=== PATIENT | female | born 1965 | race Caucasian/White ===

== ENCOUNTER 2024-01-26 08:19 | Inpatient (IN) | payer BC ==
[2024-01-26] VITALS (16 sets, daily range): BP systolic 103–136; BP diastolic 45–72; PULSE 52–98; RESP 16–24; TEMP 98.1; O2SAT 93–98
[~2024-01-26] VITALS: Ht 182.9 cm; Wt 113.0 kg
[2024-01-26] MEDS: normal saline 1000ml 1,000 ML IV ONE (09:18)
[2024-01-26] MEDS: HYDROmorphone 1 mg/ml syringe IV ONE ×2 (09:20→11:25)
[2024-01-26] MEDS: ondansetron/PF 4mg/2ml inj IV ONE (09:21)
[2024-01-26 09:31] LABS: BASOPHILS % (AUTO) 0.4 % (0-1); EOSINOPHILS % (AUTO) 0.2 % (0-6); HEMATOCRIT 40.5 % (35.0-45.0); HEMOGLOBIN 13.7 g/dl (12.0-16.0); LYMPHOCYTES # (AUTO) 3.4 X10'3 (1.1-4.8); LYMPHOCYTES % (AUTO) 26.2 % (21-51); MEAN CORPUSCULAR HEMOGLOBIN 29.4 PG (27.0-31.0); MEAN CORPUSCULAR HGB CONC 33.7 g/dL (33.0-36.5); MEAN CORPUSCULAR VOLUME 87.2 FL (78-98); MEAN PLATELET VOLUME 7.3 FL (7.4-10.4); MONOCYTES # (AUTO) 0.8 X10'3 (0-0.9); NEUTROPHILS # (AUTO) 8.8 X10'3 (1.8-7.7); NEUTROPHILS % (AUTO) 67.2 % (42-75); PLATELET COUNT 277 X10'3 (140-440); RED BLOOD COUNT 4.64 X10'6 (4.20-5.60); RED CELL DISTRIBUTION WIDTH 13.5 % (11.5-14.5); WHITE BLOOD COUNT 13.1 X10'3 (4.5-11.0)
[2024-01-26 09:59] LABS: ALANINE AMINOTRANSFERASE 20 U/L (12-78); ALBUMIN 3.7 G/DL (3.4-5.0); ALBUMIN/GLOBULIN RATIO 0.9 (1.1-1.5); ALKALINE PHOSPHATASE 89 IU/L (46-116); ANION GAP 10 (8-16); ASPARTATE AMINO TRANSFERASE 12 U/L (10-37); BLOOD UREA NITROGEN 17 MG/DL (7-18); BUN/CREATININE RATIO 21.5 (10.0-20.0); CALCIUM 9.1 MG/DL (8.5-10.1); CHLORIDE 101 MMOL/L (99-107); CREATININE 0.79 MG/DL (0.40-0.90); GLUCOSE 128 MG/DL (70-104); LIPASE 21 U/L (16-77); SODIUM 137 MMOL/L (135-145); TOTAL CARBON DIOXIDE 26.2 MMOL/L (24-32); TOTAL PROTEIN 7.6 G/DL (6.4-8.2); eCRCL 73 ML/MIN; eGFR 75 ML/MIN
[2024-01-26] MEDS ORDERED: iohexol 300mg/ml 100ml inj. ONE (10:03)
[2024-01-26] MEDS ORDERED: NO HOME MEDS (11:04)
[2024-01-26] MEDS: acetaminophen 1,000mg/100ml IV 100 ML IV ONE (11:21)
[2024-01-26] MEDS: piperacillin/tazo 3.375gm/50ml 50 ML IV ONE (11:42)
[2024-01-26] MEDS ORDERED: sevoflurane 250ml liquid IH ONE (11:45)
[2024-01-26] MEDS ORDERED: potassium Cl 20 mEq SR tablet PO PRN ×2 (13:25)
[2024-01-26] MEDS ORDERED: magnesium Cl slow-release 64mg tablet PO PRN (13:25)
[2024-01-26] MEDS ORDERED: mag hydrox/Alum hydrox/simeth 30ml oral suspension PO PRN (13:25)
[2024-01-26] MEDS ORDERED: docusate sod 100mg capsule PO PRN (13:25)
[2024-01-26] MEDS ORDERED: metoclopramide 5 mg/ml inj IV PRN (13:25)
[2024-01-26] MEDS ORDERED: magnesium sulf-water 4G/100mL 100 ML IV PRN (13:25)
[2024-01-26] MEDS ORDERED: potassium Cl 40MEQ/1/2NS 520ml 520 ML IV PRN (13:25)
[2024-01-26] MEDS ORDERED: acetaminophen 325mg tablet PO PRN (13:25)
[2024-01-26] MEDS ORDERED: ondansetron/PF 4mg/2ml inj IV PRN ×2 (13:25→14:45)
[2024-01-26] MEDS ORDERED: magnesium sulf-water 2g/50mL 50 ML IV PRN (13:25)
[2024-01-26 13:37] LABS: MAGNESIUM 1.9 MG/DL (1.5-2.4)
[2024-01-26 13:40] LABS: APTT 26 SECONDS (22-32); PROTHROMBIN TIME 10.7 SECONDS (9.0-12.0)
[2024-01-26] MEDS ORDERED: BUPIVAcaine 2.5mg/ml inj 50ml vial (contains preservative) ONE (14:06)
[2024-01-26] MEDS: ringers solution, lacted 1,000 ML IV SCH ×2 (14:32→14:45)
[2024-01-26] MEDS: BUPIVAcaine/PF 2.5 mg/ml (0.25%) 30ml vial IJ ONE (14:41)
[2024-01-26] MEDS ORDERED: midazolam 1 mg/ML 2ml injection ONE (14:43)
[2024-01-26] MEDS ORDERED: rocuronium 10mg/ml inj IV ONE (14:43)
[2024-01-26] MEDS ORDERED: fentaNYL/PF 50MCG/1 ML 2ML syringe ONE (14:43)
[2024-01-26] MEDS ORDERED: propofol inj 20 ML IV ONE (14:43)
[2024-01-26] MEDS ORDERED: labetalol 20mg/4ml (5mg/ml) syringe IV PRN (14:45)
[2024-01-26] MEDS ORDERED: meperidine/PF 25mg/ml syringe IV PRN ×3 (14:45)
[2024-01-26] MEDS ORDERED: proCHLORperazine 10 MG/2 ml inj IV PRN (14:45)
[2024-01-26] MEDS ORDERED: morphine 4 MG/ML inj SYRINge IV PRN (14:45)
[2024-01-26] MEDS ORDERED: morphine 2 MG/ML inj. syringe IV PRN (14:45)
[2024-01-26] MEDS ORDERED: ceFOXitin 1000 MG inj ONE ×2 (15:14)
[2024-01-26] MEDS: piperacillin/tazo 3.375gm/50ml 50 ML IV SCH (16:00)
[2024-01-26 16:41] LABS: HEMOGLOBIN A1C 5.8 % (4.5-6.2)
[2024-01-26] MEDS ORDERED: dexamethasone sod phosphate 4mg/ml inj. ONE (16:47)
[2024-01-26] MEDS ORDERED: ondansetron/PF 4mg/2ml inj ONE (16:48)
[2024-01-26] MEDS ORDERED: neostigmine methylsulfate 1 MG/ML 10ml vial ONE (16:48)
[2024-01-26] MEDS ORDERED: glycopyrrolate 0.2mg/ml inj ONE (16:48)
[2024-01-26] MEDS: HYDROmorphone/PF 0.2 MG/ML SYRINGE IV PRN (17:57)
[2024-01-26] MEDS ORDERED: naloxone 0.4 mg/ml inj IV PRN (18:25)
[2024-01-26] MEDS: K and/or MAG REPLACEMENT MC SCH (20:00)
[2024-01-26] MEDS: HYDROcodone/acetaminophen 5mg/325mg tablet PO PRN (21:07)
[2024-01-26] MEDS: HYDROmorphone inj. 0.5 MG/0.5 ML DISP.SYRIN IV PRN (22:43)
[2024-01-27 06:00] VITALS: BP 117/61; PULSE 52; PULSE 58; RESP 14; TEMP 97.8; O2SAT 97
[2024-01-27 07:02] LABS: BASOPHILS % (AUTO) 0 % (0-1); EOSINOPHILS % (AUTO) 0 % (0-6); HEMATOCRIT 34.4 % (35.0-45.0); HEMOGLOBIN 11.6 g/dl (12.0-16.0); LYMPHOCYTES # (AUTO) 1.8 X10'3 (1.1-4.8); LYMPHOCYTES % (AUTO) 12.4 % (21-51); MEAN CORPUSCULAR HEMOGLOBIN 29.4 PG (27.0-31.0); MEAN CORPUSCULAR HGB CONC 33.6 g/dL (33.0-36.5); MEAN CORPUSCULAR VOLUME 87.4 FL (78-98); MONOCYTES # (AUTO) 0.7 X10'3 (0-0.9); MONOCYTES % (AUTO) 5.2 % (2-12); NEUTROPHILS # (AUTO) 11.8 X10'3 (1.8-7.7); NEUTROPHILS % (AUTO) 82.4 % (42-75); PLATELET COUNT 232 X10'3 (140-440); RED BLOOD COUNT 3.93 X10'6 (4.20-5.60); RED CELL DISTRIBUTION WIDTH 13.1 % (11.5-14.5); WHITE BLOOD COUNT 14.4 X10'3 (4.5-11.0)
[2024-01-27 07:34] LABS: ALANINE AMINOTRANSFERASE 13 U/L (12-78); ALBUMIN 2.7 G/DL (3.4-5.0); ALBUMIN/GLOBULIN RATIO 0.7 (1.1-1.5); ALKALINE PHOSPHATASE 69 IU/L (46-116); ANION GAP 7 (8-16); ASPARTATE AMINO TRANSFERASE 10 U/L (10-37); BILIRUBIN,TOTAL 0.7 MG/DL (0.1-1.0); BLOOD UREA NITROGEN 12 MG/DL (7-18); CALCIUM 8.1 MG/DL (8.5-10.1); CHLORIDE 102 MMOL/L (99-107); CHOL/HDL RATIO 2.2 (0.00-4.99); CHOLESTEROL 125 MG/DL (0-200); GLUCOSE 143 MG/DL (70-104); HDL CHOLESTEROL 56 MG/DL (35-60); LDL CHOLESTEROL 60 MG/DL (50-100); MAGNESIUM 1.9 MG/DL (1.5-2.4); SODIUM 138 MMOL/L (135-145); TOTAL CARBON DIOXIDE 28.7 MMOL/L (24-32); TOTAL PROTEIN 6.6 G/DL (6.4-8.2); TRIGLYCERIDES 61 MG/DL (20-135); eCRCL 88 ML/MIN; eGFR 74 ML/MIN
[2024-01-27 08:36] VITALS: RESP 17; O2SAT 95
[2024-01-27 10:00] VITALS: BP 134/61; PULSE 63; RESP 20; TEMP 97.2; O2SAT 96
[2024-01-27] MEDS: magnesium hydroxide 30ml (MOM) UD suspension PO PRN (16:13)
[2024-01-27 18:40] VITALS: BP_SYST 121; BP_SYST 126; BP_DIAS 62; BP_DIAS 65; PULSE 66; PULSE 78; RESP 18; TEMP 97.9; TEMP 98.5; O2SAT 92; O2SAT 99
[2024-01-27 22:00] VITALS: BP 126/62; PULSE 78; RESP 18; TEMP 98.5; O2SAT 92
[2024-01-28] MEDS: ondansetron/PF 4mg/2ml inj IV PRN (02:11)
[2024-01-28] MEDS: pantoprazole 40 MG vial IV SCH (06:06)
[2024-01-28] MEDS: proCHLORperazine 10 MG/2 ml inj IV ONE (06:06)
[2024-01-28 06:53] LABS: BASOPHILS % (AUTO) 0.1 % (0-1); EOSINOPHILS # (AUTO) 0.1 X10'3 (0-0.9); EOSINOPHILS % (AUTO) 1.1 % (0-6); HEMATOCRIT 36.3 % (35.0-45.0); HEMOGLOBIN 12.3 g/dl (12.0-16.0); LYMPHOCYTES # (AUTO) 2.3 X10'3 (1.1-4.8); LYMPHOCYTES % (AUTO) 20.5 % (21-51); MEAN CORPUSCULAR HEMOGLOBIN 29.7 PG (27.0-31.0); MEAN CORPUSCULAR VOLUME 87.3 FL (78-98); MEAN PLATELET VOLUME 7.2 FL (7.4-10.4); MONOCYTES # (AUTO) 0.7 X10'3 (0-0.9); MONOCYTES % (AUTO) 6.3 % (2-12); NEUTROPHILS # (AUTO) 8.2 X10'3 (1.8-7.7); PLATELET COUNT 268 X10'3 (140-440); RED BLOOD COUNT 4.16 X10'6 (4.20-5.60); RED CELL DISTRIBUTION WIDTH 13.5 % (11.5-14.5); WHITE BLOOD COUNT 11.4 X10'3 (4.5-11.0)
[2024-01-28 07:00] VITALS: BP 120/70; PULSE 77; RESP 16; TEMP 97.2; O2SAT 95
[2024-01-28 07:25] LABS: ALANINE AMINOTRANSFERASE 19 U/L (12-78); ALBUMIN 2.9 G/DL (3.4-5.0); ALBUMIN/GLOBULIN RATIO 0.8 (1.1-1.5); ALKALINE PHOSPHATASE 73 IU/L (46-116); ANION GAP 6 (8-16); ASPARTATE AMINO TRANSFERASE 17 U/L (10-37); BILIRUBIN,TOTAL 0.8 MG/DL (0.1-1.0); BLOOD UREA NITROGEN 16 MG/DL (7-18); BUN/CREATININE RATIO 18.6 (10.0-20.0); CALCIUM 8.4 MG/DL (8.5-10.1); CHLORIDE 101 MMOL/L (99-107); CREATININE 0.86 MG/DL (0.40-0.90); GLUCOSE 119 MG/DL (70-104); MAGNESIUM 2.1 MG/DL (1.5-2.4); POTASSIUM 3.7 MMOL/L (3.5-5.1); SODIUM 138 MMOL/L (135-145); TOTAL CARBON DIOXIDE 30.9 MMOL/L (24-32); TOTAL PROTEIN 6.7 G/DL (6.4-8.2); eCRCL 82 ML/MIN; eGFR 68 ML/MIN
[2024-01-28] MEDS ORDERED: metoclopramide 5 mg/ml inj IV PRN (08:35)
[2024-01-28] MEDS: metoclopramide 5 mg/ml inj IV SCH (09:20)
[2024-01-28 10:22] VITALS: RESP 14; O2SAT 98
[2024-01-28 11:00] VITALS: BP 121/58; PULSE 76; RESP 16; TEMP 97.1; O2SAT 96
[2024-01-28] MEDS: normal saline 1000ml 1,000 ML IV SCH (13:15)
[2024-01-28] MEDS: oxyCODONE IR 5mg (immed. release) tablet PO PRN (13:47)
[2024-01-28 18:40] VITALS: BP 133/54; PULSE 72; RESP 16; TEMP 97.3; O2SAT 96
[2024-01-29] VITALS (7 sets, daily range): BP systolic 118–138; BP diastolic 47–67; PULSE 65–72; RESP 14–20; TEMP 96.3–98.4; O2SAT 93–97
[2024-01-29 06:10] LABS: BASOPHILS % (AUTO) 0.2 % (0-1); EOSINOPHILS # (AUTO) 0.2 X10'3 (0-0.9); EOSINOPHILS % (AUTO) 2.6 % (0-6); HEMATOCRIT 32.3 % (35.0-45.0); LYMPHOCYTES # (AUTO) 2.2 X10'3 (1.1-4.8); LYMPHOCYTES % (AUTO) 28.3 % (21-51); MEAN CORPUSCULAR HEMOGLOBIN 29.9 PG (27.0-31.0); MEAN CORPUSCULAR HGB CONC 34.1 g/dL (33.0-36.5); MEAN CORPUSCULAR VOLUME 87.8 FL (78-98); MEAN PLATELET VOLUME 6.6 FL (7.4-10.4); MONOCYTES # (AUTO) 0.6 X10'3 (0-0.9); MONOCYTES % (AUTO) 8.4 % (2-12); NEUTROPHILS # (AUTO) 4.7 X10'3 (1.8-7.7); NEUTROPHILS % (AUTO) 60.5 % (42-75); PLATELET COUNT 280 X10'3 (140-440); RED BLOOD COUNT 3.67 X10'6 (4.20-5.60); RED CELL DISTRIBUTION WIDTH 13.4 % (11.5-14.5); WHITE BLOOD COUNT 7.7 X10'3 (4.5-11.0)
[2024-01-29 06:35] LABS: ALANINE AMINOTRANSFERASE 22 U/L (12-78); ALBUMIN 2.5 G/DL (3.4-5.0); ALBUMIN/GLOBULIN RATIO 0.7 (1.1-1.5); ALKALINE PHOSPHATASE 63 IU/L (46-116); ANION GAP 6 (8-16); ASPARTATE AMINO TRANSFERASE 14 U/L (10-37); BILIRUBIN,TOTAL 0.9 MG/DL (0.1-1.0); BLOOD UREA NITROGEN 12 MG/DL (7-18); BUN/CREATININE RATIO 16.9 (10.0-20.0); CALCIUM 7.5 MG/DL (8.5-10.1); CHLORIDE 105 MMOL/L (99-107); CREATININE 0.71 MG/DL (0.40-0.90); GLUCOSE 102 MG/DL (70-104); MAGNESIUM 2.1 MG/DL (1.5-2.4); POTASSIUM 3.7 MMOL/L (3.5-5.1); SODIUM 139 MMOL/L (135-145); TOTAL CARBON DIOXIDE 28.5 MMOL/L (24-32); eCRCL 100 ML/MIN; eGFR 85 ML/MIN
[2024-01-29] MEDS: normal saline 1000ml 1,000 ML IV SCH (09:23)
[2024-01-30 04:39] LABS: BASOPHILS % (AUTO) 0.4 % (0-1); EOSINOPHILS # (AUTO) 0.3 X10'3 (0-0.9); EOSINOPHILS % (AUTO) 3.6 % (0-6); HEMOGLOBIN 10.8 g/dl (12.0-16.0); LYMPHOCYTES # (AUTO) 1.6 X10'3 (1.1-4.8); LYMPHOCYTES % (AUTO) 23.5 % (21-51); MEAN CORPUSCULAR HEMOGLOBIN 29.5 PG (27.0-31.0); MEAN CORPUSCULAR HGB CONC 33.6 g/dL (33.0-36.5); MEAN CORPUSCULAR VOLUME 87.7 FL (78-98); MEAN PLATELET VOLUME 6.6 FL (7.4-10.4); MONOCYTES # (AUTO) 0.6 X10'3 (0-0.9); NEUTROPHILS # (AUTO) 4.5 X10'3 (1.8-7.7); NEUTROPHILS % (AUTO) 64.5 % (42-75); PLATELET COUNT 283 X10'3 (140-440); RED BLOOD COUNT 3.65 X10'6 (4.20-5.60)
[2024-01-30 05:01] LABS: ALANINE AMINOTRANSFERASE 21 U/L (12-78); ALBUMIN 2.5 G/DL (3.4-5.0); ALBUMIN/GLOBULIN RATIO 0.8 (1.1-1.5); ALKALINE PHOSPHATASE 60 IU/L (46-116); ANION GAP 6 (8-16); ASPARTATE AMINO TRANSFERASE 9 U/L (10-37); BILIRUBIN,TOTAL 0.7 MG/DL (0.1-1.0); BLOOD UREA NITROGEN 6 MG/DL (7-18); BUN/CREATININE RATIO 7.9 (10.0-20.0); CALCIUM 7.8 MG/DL (8.5-10.1); CHLORIDE 107 MMOL/L (99-107); CREATININE 0.76 MG/DL (0.40-0.90); GLUCOSE 120 MG/DL (70-104); MAGNESIUM 2.1 MG/DL (1.5-2.4); POTASSIUM 3.7 MMOL/L (3.5-5.1); SODIUM 142 MMOL/L (135-145); TOTAL CARBON DIOXIDE 29.3 MMOL/L (24-32); TOTAL PROTEIN 5.8 G/DL (6.4-8.2); eCRCL 93 ML/MIN; eGFR 78 ML/MIN
[2024-01-30 06:00] VITALS: BP 118/48; PULSE 75; RESP 16; TEMP 98.5; O2SAT 94
[2024-01-30] MEDS ORDERED: OXYC-658 PO (06:35)
[2024-01-30 10:00] VITALS: BP 151/82; PULSE 87; RESP 18; TEMP 97.3; O2SAT 96
[2024-01-30] MEDS ORDERED: AMOX-580 PO ×2 (11:37→21:47)
[2024-01-30] MEDS ORDERED: FLUC100T PO (11:37)
[2024-01-31] MEDS ORDERED: pantoprazole 40mg Tablet.DR PO SCH (07:30)
== END 2024-01-30 15:23 | disposition home or self-care (01) | DRG 853 ==
LOC: ER 08:20 → SUR 3N 11:26
PROVIDERS: ADMIT Internal Medicine; ATTEND Internal Medicine
PROC: 0DTJ4ZZ Resection of Appendix, Percutaneous Endoscopic Approach (ICD-10-PCS; 2024-01-26)
PROC: BW211ZZ Computerized Tomography (CT Scan) of Abdomen and Pelvis using Low Osmolar Contrast (ICD-10-PCS; 2024-01-26)
PROC: 8E0W4CZ Robotic Assisted Procedure of Trunk Region, Percutaneous Endoscopic Approach (ICD-10-PCS; principal; 2024-01-26 14:51)
DX: A41.9 Sepsis, unspecified organism (principal); N17.0 Acute kidney failure with tubular necrosis; K35.80 Unspecified acute appendicitis; K76.0 Fatty (change of) liver, not elsewhere classified; K57.30 Diverticulosis of large intestine without perforation or abscess without bleeding; Z20.822 Contact with and (suspected) exposure to COVID-19; E86.0 Dehydration; K80.80 Other cholelithiasis without obstruction; N28.1 Cyst of kidney, acquired; K66.0 Peritoneal adhesions (postprocedural) (postinfection); Z98.891 History of uterine scar from previous surgery; Z88.1 Allergy status to other antibiotic agents
CPT/HCPCS: 99291; Z7506; Z7508; 36415; 74177; 76700; 80053; 80061; 82948; 83036; 83690; 83735; 85025; 85610; 85730; 86885; 86900; 86901; 87502; 87503; 87811; 93005; A4615; A4618; A6258; A6402; A7000; G0378; J0131; J0694; J0780; J1100; J1171; J2250; J2405; J2470; J2543; J2704; J2710; J2765; J3010; J3490; J7030; J7120; Q9967

== ENCOUNTER 2025-01-06 08:33 | Day surgery (SDC) | payer BC, SELFPAY ==
--- NOTE | 2024-12-30 12:16 | ELECTROCARDIOGRAPH REPORT ---
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 JEFF Gill Measurements Intervals [place] Rate: 56 P: 50 MO: 176 QRS: 16 QRSD: 99 T: 22 QT: 399 QTc: 386 Interpretive Statements Sinus bradycardia Borderline T wave abnormalities Electronically Signed On 12-30-2024 17:49:[address] JEFF Gill Please click the below link to view image of tracing.
[2024-12-30 12:19] LABS: MEAN PLATELET VOLUME 7.0 FL (7.4-10.4); PRE OP HEMATOCRIT 39.5 % (35.0-45.0); PRE OP HEMOGLOBIN 13.2 g/dL (12.0-16.0); PRE OP PLATELET COUNT 296 X10'3 (140-440); PRE OP WHITE BLOOD COUNT 7.2 10'3 (4.8-10.8); RED CELL DISTRIBUTION WIDTH 13.3 % (11.5-14.5)
[2024-12-30 12:25] LABS: LEUKOCYTE ESTERASE ,URINE NEGATIVE (Neg); NITRITES, URINE NEGATIVE (Neg); OCCULT BLOOD,URINE TRACE-INTACT (Neg)
[2024-12-30 12:31] LABS: UA COLLECTION TYPE NON-SPECIFIED
[2024-12-30 12:33] LABS: SQUAMOUS EPITHELIAL CELL,UR MODERATE /LPF (FEW)
[2024-12-30 12:38] LABS: CREATININE 0.81 MG/DL (0.40-0.90); PRE OP ALT 28 U/L (30-65); PRE OP ANION GAP 7 (8-16); PRE OP AST 20 U/L (10-37); PRE OP BILIRUB, TOTAL 0.7 MG/DL (0.0-1.0); PRE OP GLUCOSE 97 MG/DL (70-104); PRE OP POTASSIUM 3.9 MMOL/L (3.4-5.1); PRE OP SODIUM 140 MMOL/L (135-145); TOTAL CARBON DIOXIDE 30.4 MMOL/L (24-32); eGFR 72 ML/MIN
[2024-12-30 12:39] LABS: PRE OP INR 1.0 INR; PRE OP PARTIAL THROMB. TIME 30.0 SECONDS (22-32); PRE OP PROTIME 10.3 SECONDS (9.0-12.0)
[2025-01-06] VITALS (13 sets, daily range): BP systolic 140–182; BP diastolic 63–101; PULSE 62–76; RESP 10–18; TEMP 97.4; O2SAT 93–100
[~2025-01-06] VITALS: Ht 167.6 cm; Wt 117.8 kg
[2025-01-06] MEDS: ceFOXitin 2GM-NS 100mL ADDvant 100 ML IV ONE (05:30)
[~2025-01-06 08:33] MED LIST: MULT-1074 PO; TURM500C4 PO; VITA-268 PO
[2025-01-06] MEDS: ringers solution, lacted 1,000 ML IV SCH ×2 (09:46→15:21)
[2025-01-06] MEDS ORDERED: fentaNYL/PF 50MCG/1 ML 2ML syringe IV PRN ×2 (12:10)
[2025-01-06] MEDS ORDERED: labetalol 20mg/4ml (5mg/ml) syringe IV PRN (12:10)
[2025-01-06] MEDS ORDERED: ondansetron/PF 4mg/2ml inj IV PRN (12:10)
[2025-01-06] MEDS ORDERED: enalaprilat 1.25mg/ml 2ml vial IV PRN (12:10)
[2025-01-06] MEDS ORDERED: HYDROmorphone/PF 0.2 MG/ML SYRINGE IV PRN ×2 (12:10)
[2025-01-06] MEDS ORDERED: BUPIVAcaine 2.5mg/ml inj 50ml vial (contains preservative) ONE (12:11)
--- NOTE | 2025-01-06 12:33 | RADIOLOGY REPORT ---
CT abdomen and pelvis without contrast INDICATION: PRE OP ABDOMINAL SURGERY TECHNIQUE: Serial axial images were performed through the abdomen and pelvis and then reformatted in the sagittal and coronal plane. All CT scans at this medical facility are performed using dose modulation techniques as appropriate to a performed exam including the following: Automated exposure control was utilized; adjustment of the MA and/or KvP according to patient size; and use of iterative reconstruction technique. FINDINGS: Liver and spleen are normal in size without focal mass. No renal stones or hydronephrosis. 3 cm cyst right kidney. No masses or enlargement of the adrenal glands or pancreas. No biliary dilatation. Stones in the gallbladder without gallbladder wall thickening. No distention of bowel loops to suggest mechanical obstruction of bowel. Small umbilical hernia containing fat. The appendix is normal in appearance. No free fluid. Within the pelvis, bladder is smooth walled without stones. No abnormal masses or fluid collections. IMPRESSION: 1. Cholelithiasis. 2. Small umbilical hernia containing fat Computed Tomographic Radiation Dosimetry Report: Total CTDI vol = 35 mGy Total DLP = 1883 mGy-cm Low dose protocols were performed.
[2025-01-06] MEDS ORDERED: fentaNYL /PF 50mcg/ml 5ml ampule ONE (12:55)
[2025-01-06] MEDS ORDERED: midazolam 1 mg/ML 2ml injection ONE (12:55)
[2025-01-06] MEDS ORDERED: dexamethasone sod phosphate 4mg/ml inj. ONE ×2 (13:06→13:08)
[2025-01-06] MEDS ORDERED: LIDOcaine 2% (20mg/ml) 5ml vial ONE (13:06)
[2025-01-06] MEDS ORDERED: propofol inj 20 ML IV ONE (13:06)
[2025-01-06] MEDS ORDERED: rocuronium 10mg/ml inj IV ONE (13:14)
[2025-01-06] MEDS ORDERED: glycopyrrolate 0.2mg/ml inj ONE (13:15)
[2025-01-06] MEDS: BUPIVAcaine/PF 2.5 mg/ml (0.25%) 30ml vial IJ ONE (14:00)
[2025-01-06] MEDS ORDERED: ondansetron/PF 4mg/2ml inj ONE (15:02)
[2025-01-06] MEDS ORDERED: acetaminophen 1,000mg/100ml IV 100 ML IV ONE (15:05)
--- NOTE | 2025-01-06 15:08 | OPERATIVE REPORT ---
Operative Report Providers to CC ~ Date of Procedure: Jan 06, 2025 Pre-Operative Diagnosis: incisional hernia Post-Operative Diagnosis SAME as PRE-Op Procedure Performed robo repair incisional hernia Surgeon: patricia alba Anesthesiologist: Lul Cespedes Type of Anesthesia: General Findings: incisional hernia Estimated Blood Loss: min Specimen Removed: none ROBINSON SAMANIEGO MD Jan 06, 2025 15:08
[2025-01-06] MEDS: ketorolac trometh 30MG/ML vial 30 MG/ML VIAL IV STA (15:24)
[2025-01-06] MEDS: morphine 4 MG/ML inj SYRINge IV PRN (15:28)
[2025-01-06] MEDS: HYDROcodone/acetaminophen 5mg/325mg tablet PO ONE (16:24)
--- NOTE | 2025-01-06 17:51 | OPERATIVE REPORT ---
DATE OF SURGERY: 01/06/2025 DICTATING PHYSICIAN: Hasmukh Avalos MD PREOPERATIVE DIAGNOSIS: Incisional hernia. POSTOPERATIVE DIAGNOSIS: Incisional hernia. PROCEDURE PERFORMED: Robotic repair of incisional hernia. SURGEON: Hasmukh Avalos MD RECORDER OF DEEDS: None. ANESTHESIA: General/Dr. DRAINS: None. INDICATIONS FOR OPERATION: A 59-year-old female who developed an incisional hernia after an appendectomy. Seen for surgical repair. INTRAOPERATIVE FINDINGS: The patient had a supraumbilical incisional hernia of approximately 4 cm in diameter. DESCRIPTION OF PROCEDURE: The patient was placed supine on the operating table. After induction of general anesthesia and placement of endotracheal tube, the abdomen was prepped and draped. An incision was made at Doty's point. A Veress needle was placed. Pneumoperitoneum was initiated by insufflation of CO2. Additional port was then placed in the left upper quadrant. The abdominal cavity was entered without difficulty. Two additional ports were then placed in the left lateral abdomen under laparoscopic vision. The robot was then brought to the field. Camera port docked. Camera was placed. Camera was targeted. Additional ports were then docked and instruments placed. Abdomen was then explored. The patient had a 4 cm incisional hernia. Peritoneum was mobilized off the abdominal wall. Defects were closed with a suture of 0 V-Loc and oversewn. A 12 cm piece of mesh was brought to the field, secured in the envelope created by mobilizing the peritoneum. Mesh was secured in place with sutures of 2-0 placed circumferentially. Upon completion of the repair, the abdomen was irrigated with large amount of antibiotic-containing solution. Ports were removed under laparoscopic vision. Prior to removing the ports, the left upper quadrant incision was closed with running #1 Vicryl. The wounds were then closed in layers. The pneumoperitoneum was evacuated. Dressing was applied. The patient is referred to recovery room in stable condition. Hasmukh Avalos MD TID: [id number] RECEIPT: [id number] /[facility] [place]
== END 2025-01-06 17:39 | disposition home or self-care (01) ==
LOC: PAS 08:33
PROVIDERS: ATTEND Surgery
DX: K43.2 Incisional hernia without obstruction or gangrene (principal); K80.20 Calculus of gallbladder without cholecystitis without obstruction; K42.9 Umbilical hernia without obstruction or gangrene; N28.1 Cyst of kidney, acquired; R00.1 Bradycardia, unspecified; R73.09 Other abnormal glucose; Z90.49 Acquired absence of other specified parts of digestive tract
CPT/HCPCS: 36415; 49593; 74176; 80053; 81001; 82948; 85025; 85610; 85730; 93005; C1781; J0131; J0694; J1100; J1885; J2003; J2250; J2270; J2405; J2704; J2710; J3490; J7030; J7120; S2900; Z7506; Z7508; Z7512; A4215; A4618; C1758; J3010